=== PATIENT | male | born 1990 | race Caucasian/White ===

== ENCOUNTER → 2019-03-17 | Outpatient (CLI) | payer MEDICAID ==
[2019-03-17 09:31] LABS: EOS # 0.1 (0.04-0.40); EOS % 0.7 % (0.0-4.0); HEMATOCRIT 46.8 % (42.0-52.0); HEMOGLOBIN 15.4 g/dL (13.5-18.0); LYMPH# 2.5 (1.50-4.00); MEAN CELL VOLUME 85 fl (78-100); MEAN CORPUSCULAR HEMOGLOBIN 28 pg (27-31); MEAN CORPUSCULAR HGB CONC 33 g/dL (33-37); MEAN PLATELET VOLUME 9.1 fl (7.4-10.4); MONO # 0.6 (0.20-0.80); NEU # 3.8 (1.40-6.50); PLATELET COUNT 207 K/mm3 (130-400); RED BLOOD COUNT 5.49 M/mm3 (4.20-5.60); RED CELL DISTRIBUTION WIDTH 13.5 % (11.5-14.5); WHITE BLOOD COUNT 6.9 K/mm3 (4.8-10.8)
[2019-03-17 09:35] LABS: ALBUMIN 4.7 g/dL (3.5-5.0); POTASSIUM 4.2 mmol/L (3.5-5.1)
[2019-03-17 09:36] LABS: CALCIUM 10.1 mg/dL (8.3-10.5)
[2019-03-17 09:38] LABS: TOTAL PROTEIN 7.9 g/dL (6.4-8.3)
[2019-03-17 09:39] LABS: TOTAL BILIRUBIN 0.4 mg/dL (0.2-1.2)
[2019-03-17 10:33] LABS: ERYTHROCYTE SEDIMENTATION RATE 2 mm/hr (0-15)
== END ==
LOC: LAB 09:17
PROVIDERS: Internal Medicine
DX: F42.9 Obsessive-compulsive disorder, unspecified (principal); F84.0 Autistic disorder; E66.8 Other obesity; R73.02 Impaired glucose tolerance (oral)

== ENCOUNTER → 2021-03-07 | Outpatient (CLI) | payer MEDICAID ==
[2021-03-07 09:32] LABS: BASO # 0.03 K/mm3 (0.02-0.10); EOS # 0.09 K/mm3 (0.04-0.40); EOS % 1.3 % (0.0-4.0); HEMATOCRIT 44.8 % (42.0-52.0); HEMOGLOBIN 14.9 g/dL (13.5-18.0); LYMPH# 2.54 K/mm3 (1.50-4.00); MEAN CELL VOLUME 87 fl (78-100); MEAN CORPUSCULAR HEMOGLOBIN 29 pg (27-31); MEAN CORPUSCULAR HGB CONC 33 g/dL (33-37); MEAN PLATELET VOLUME 9.2 fl (7.4-10.4); MONO # 0.49 K/mm3 (0.20-0.80); NEU # 3.67 K/mm3 (1.40-6.50); PLATELET COUNT 185 K/mm3 (130-400); RED BLOOD COUNT 5.16 M/mm3 (4.20-5.60); RED CELL DISTRIBUTION WIDTH 12.7 % (11.5-14.5); WHITE BLOOD COUNT 6.8 K/mm3 (4.8-10.8)
[2021-03-07 09:40] LABS: ALBUMIN 4.6 g/dL (3.5-5.0); POTASSIUM 4.5 mmol/L (3.5-5.1)
[2021-03-07 09:41] LABS: CALCIUM 9.6 mg/dL (8.3-10.5)
[2021-03-07 09:43] LABS: TOTAL PROTEIN 7.6 g/dL (6.4-8.3)
[2021-03-07 09:45] LABS: TOTAL BILIRUBIN 0.4 mg/dL (0.2-1.2)
== END ==
LOC: LAB 09:20
PROVIDERS: Internal Medicine
DX: K90.9 Intestinal malabsorption, unspecified (principal); F42.9 Obsessive-compulsive disorder, unspecified; E78.2 Mixed hyperlipidemia

== ENCOUNTER → 2022-03-24 | Outpatient (CLI) | payer MEDICAID ==
[2022-03-24 15:25] LABS: BASO # 0.03 K/mm3 (0.02-0.10); EOS # 0.02 K/mm3 (0.04-0.40); EOS % 0.3 % (0.0-4.0); HEMATOCRIT 46.1 % (42.0-52.0); HEMOGLOBIN 15.2 g/dL (13.5-18.0); LYMPH# 2.17 K/mm3 (1.50-4.00); MEAN CELL VOLUME 87 fl (78-100); MEAN CORPUSCULAR HEMOGLOBIN 29 pg (27-31); MEAN CORPUSCULAR HGB CONC 33 g/dL (33-37); MEAN PLATELET VOLUME 9.2 fl (7.4-10.4); NEU # 4.55 K/mm3 (1.40-6.50); PLATELET COUNT 214 K/mm3 (130-400); RED BLOOD COUNT 5.32 M/mm3 (4.20-5.60); RED CELL DISTRIBUTION WIDTH 12.8 % (11.5-14.5); WHITE BLOOD COUNT 7.2 K/mm3 (4.8-10.8)
[2022-03-24 15:42] LABS: ALBUMIN 4.7 g/dL (3.5-5.0); POTASSIUM 3.9 mmol/L (3.5-5.1)
[2022-03-24 15:43] LABS: CALCIUM 9.7 mg/dL (8.3-10.5)
[2022-03-24 15:45] LABS: TOTAL PROTEIN 7.9 g/dL (6.4-8.3)
[2022-03-24 15:47] LABS: TOTAL BILIRUBIN 0.5 mg/dL (0.2-1.2)
== END ==
LOC: LAB 14:53
PROVIDERS: Internal Medicine
DX: F84.0 Autistic disorder (principal); R45.4 Irritability and anger; K90.9 Intestinal malabsorption, unspecified; F42.9 Obsessive-compulsive disorder, unspecified; E66.9 Obesity, unspecified; E78.2 Mixed hyperlipidemia; R73.03 Prediabetes

== ENCOUNTER → 2024-02-07 | Outpatient (CLI) | payer MEDICAID ==
[2024-02-07 11:00] LABS: BASO # 0.01 K/mm3 (0.02-0.10); EOS # 0.06 K/mm3 (0.04-0.40); EOS % 0.7 % (0.0-4.0); HEMATOCRIT 46.1 % (42.0-52.0); HEMOGLOBIN 15.5 g/dL (13.5-18.0); LYMPH# 2.44 K/mm3 (1.50-4.00); MEAN CELL VOLUME 86 fl (78-100); MEAN CORPUSCULAR HEMOGLOBIN 29 pg (27-31); MEAN CORPUSCULAR HGB CONC 34 g/dL (33-37); MEAN PLATELET VOLUME 8.8 fl (7.4-10.4); MONO # 0.49 K/mm3 (0.20-0.80); NEU # 5.21 K/mm3 (1.40-6.50); PLATELET COUNT 193 K/mm3 (130-400); RED BLOOD COUNT 5.36 M/mm3 (4.20-5.60); WHITE BLOOD COUNT 8.2 K/mm3 (4.8-10.8)
[2024-02-07 11:02] LABS: CALCIUM 10.1 mg/dL (8.3-10.5)
[2024-02-07 11:04] LABS: TOTAL PROTEIN 8.4 g/dL (6.4-8.3)
[2024-02-07 11:06] LABS: TOTAL BILIRUBIN 0.6 mg/dL (0.2-1.2)
[2024-02-07 11:11] LABS: MAGNESIUM 2.14 mg/dL (1.60-2.60)
== END ==
LOC: LAB 10:42
PROVIDERS: Internal Medicine
DX: K90.9 Intestinal malabsorption, unspecified (principal); E78.2 Mixed hyperlipidemia; F42.9 Obsessive-compulsive disorder, unspecified; R73.03 Prediabetes